=== PATIENT | female | born 1975 | race Hispanic/Latino ===

== ENCOUNTER 2018-04-22 05:25 | Day surgery (SDC) | payer MEDICAID ==
[~2018-04-22] VITALS: Ht 162.6 cm; Wt 103.6 kg
[~2018-04-22 05:25] MED LIST: DULO60CA44 PO; ESOM40CA PO; IBUP-2077 PO; LINA145C PO; METF500T6 PO; SODIUM CHLORIDE 0.9% 1000ML 1,000 ML IV ONE
[2018-04-22] MEDS ORDERED: SODIUM CHLORIDE 0.9% 1000ML 1,000 ML IV ONE (05:51)
[2018-04-22 06:09] VITALS: BP 112/62
[2018-04-22] MEDS ORDERED: LEVOTHYROXINE (06:21)
[2018-04-22] MEDS ORDERED: GABA-531 PO (06:21)
[2018-04-22] MEDS ORDERED: TRULICITY (06:21)
[2018-04-22] MEDS ORDERED: ATOR20TA PO (06:21)
[2018-04-22] MEDS ORDERED: TRAZ-187 PO (06:21)
[2018-04-22] MEDS ORDERED: PROPOFOL 10 MG/ML 20ML VIAL IV ONE ×2 (06:24→06:25)
[2018-04-22] MEDS ORDERED: FENTANYL CITRATE PF 50 MCG/1 ML 2ML VIAL ONE (06:25)
[2018-04-22] MEDS ORDERED: GLYCOPYRROLATE 0.2 MG/ML 5 ML VIAL ONE (06:25)
[2018-04-22] MEDS ORDERED: PHENYLEPHRINE HCL 10 MG/ML 1ML VIAL IV ONE (07:39)
[2018-04-22 07:47] VITALS: BP 84/49
== END 2018-04-22 08:20 | disposition home or self-care (01) ==
LOC: DAH 05:25
PROVIDERS: ATTEND Internal Medicine Gastroenterology
DX: K29.50 Unspecified chronic gastritis without bleeding (principal); K31.9 Disease of stomach and duodenum, unspecified; K21.9 Gastro-esophageal reflux disease without esophagitis; K59.00 Constipation, unspecified; E78.5 Hyperlipidemia, unspecified; E11.9 Type 2 diabetes mellitus without complications; M19.90 Unspecified osteoarthritis, unspecified site; F32.9 Major depressive disorder, single episode, unspecified; F41.9 Anxiety disorder, unspecified; Z90.711 Acquired absence of uterus with remaining cervical stump; Z79.899 Other long term (current) drug therapy; Z80.0 Family history of malignant neoplasm of digestive organs
CPT/HCPCS: 43239; 43251; 45378; 82948 ×2; 88305; 88312; A4606; J2370; J2704 ×2; J3010; J3490; J7030 ×2